=== PATIENT | male | born 1945 | race Caucasian/White ===

== ENCOUNTER 2016-06-06 | Outpatient (CLI) | payer MEDICARE, OTHER | END 2016-06-06 04:52 | disposition critical access hospital (66) | CPT/HCPCS: A0425; A0427 ==

== ENCOUNTER 2016-06-06 05:03 | Emergency (ER) | payer MEDICARE, OTHER ==
[2016-06-06] MEDS ORDERED: SODIUM CHLORIDE 0.9% 500 ML IV ONE (05:35)
[2016-06-06] MEDS ORDERED: POTASSIUM BICARB 25 MEQ TABLET PO STA (07:07)
[2016-06-06] MEDS ORDERED: DEXAMETHASONE 10 MG/ML VIAL IVP STA (07:07)
[2016-06-06] MEDS ORDERED: POTASSIUM BICARB 25 MEQ TABLET PO ONE (07:16)
[2016-06-06] MEDS ORDERED: DEXAMETHASONE 10 MG/ML VIAL ONE (07:16)
== END 2016-06-06 08:43 | disposition home or self-care (01) ==
DX: R55 Syncope and collapse (principal); T78.40XA Allergy, unspecified, initial encounter; S01.01XA Laceration without foreign body of scalp, initial encounter; W01.198A Fall on same level from slipping, tripping and stumbling with subsequent striking against other object, initial encounter; Y93.01 Activity, walking, marching and hiking; Y92.002 Bathroom of unspecified non-institutional (private) residence as the place of occurrence of the external cause; Y99.8 Other external cause status; I10 Essential (primary) hypertension
CPT/HCPCS: 36415; 70450; 71020; 80053; 83690; 83735; 84484; 85025; 93005; 93010; 96374; 99284; A9270

== ENCOUNTER 2016-06-18 14:56 | Outpatient (CLI) | payer MEDICARE, OTHER | END 2016-06-18 14:57 | disposition home or self-care (01) | DX: S22.32XA Fracture of one rib, left side, initial encounter for closed fracture (principal); J98.11 Atelectasis ==

== ENCOUNTER 2021-06-21 09:42 | Outpatient (CLI) | payer MEDICARE, OTHER ==
[2021-06-21] MEDS ORDERED: IOVERSOL 320 100 ML VIAL IVP ONE ×2 (10:07→11:22)
--- NOTE | 2021-06-21 12:02 | CT Report ---
PROCEDURE: IVP INDICATIONS: HIST OF BLADDER CA CONTRAST: IV CONTRAST: Optiray 320 ml: 100 PO CONTRAST: *NO PO CONTRAST TECHNIQUE: After the administration of oral and intravenous contrast, 5 mm thick sections acquired from the diap hragms to the symphysis. 5 mm thick coronal and sagittal reformats were acquired. For radiation dos e reduction, the following was used: automated exposure control, adjustment of mA and/or kV accordin g to patient size. COMPARISON: None. FINDINGS: Inferior chest: No focal consolidation, pleural effusion, or pneumothorax. No cardiomegaly or perica rdial effusion. Gallbladder: Minimal gallbladder wall thickening and pericholecystic fluid with evidence of cholelit hiasis. Biliary tree: No intra-or extrahepatic biliary ductal dilatation. Liver: The liver demonstrates normal enhancement, size, and contour. Spleen: Normal enhancement, size and morphology is seen. Pancreas: No contour deforming mass or inflammatory change. Adrenals: Normal size without masses. Kidneys/ureters: The right kidney is absent, compatible with prior nephrectomy. The left kidney demon strates size and morphology. A few scattered subcentimeter hypoattenuating areas are seen, measuring up to 6.5 mm, which likely reflect cysts. No solid masses or hydronephrosis. Vasculature: No evidence of aneurysm or other significant vascular pathology. Lymphatic system: No pathologic enlargement by size criteria. Minimal soft tissue density of the mese ntery. GI/mesentery: No evidence of intestinal obstruction. Descending/sigmoid reticulosis. Normal appearanc e of the appendix. Peritoneum/Retroperitoneum: No free intraperitoneal gas or large collection. Urinary bladder: The urinary bladder is distended with a smooth thin wall. Pelvic organs: Prostatomegaly. Bones/soft tissues: Multifocal degenerative change of the osseous structures. Bilateral fat-containin g inguinal hernias with largest fascial defect measuring 2.6 cm. IMPRESSION: 1.Minimal gallbladder wall thickening or pericholecystic fluid with evidence of cholelithiasis. 2. Prostatomegaly. 3.6.5 mm hypoattenuating lesion in the left upper pole kidney, which may reflect a proteinaceous or h emorrhagic cyst. Consider renal ultrasound or MR for further characterization. Reviewed by: Cresencio Srivastava MD on 06/21/2021 12:01 PM PDT Approved by: Cresencio Srivastava MD on 06/21/2021 12:01 PM PDT Station ID: [id number]
== END 2021-06-21 09:43 | disposition home or self-care (01) ==
LOC: DI 09:42
PROVIDERS: ATTEND Urology
DX: Z85.51 Personal history of malignant neoplasm of bladder (principal); Z87.448 Personal history of other diseases of urinary system; K80.20 Calculus of gallbladder without cholecystitis without obstruction; N40.0 Benign prostatic hyperplasia without lower urinary tract symptoms; R93.429 Abnormal radiologic findings on diagnostic imaging of unspecified kidney
CPT/HCPCS: 74178; Q9967; 82565; 84520